=== PATIENT | male | born 1990 ===

== ENCOUNTER 2016-08-16 01:47 | Emergency (ER) | payer OTHER ==
[2016-08-16] MEDS ORDERED: Sodium Chloride 0.9% 1,000 ML ONE (02:21)
[2016-08-16] MEDS: Sodium Chloride 0.9% 1,000 ML IV ONE (02:27)
[2016-08-16 02:28] LABS: BASO % 0.1 % (0.0-2.0); EOS # 0.1 K/uL (0.0-0.7); EOS % 0.6 % (0.0-4.0); HEMATOCRIT 42.5 % (35.0-51.0); LYMPH # 0.4 K/uL (1.0-4.3); MEAN CELL VOLUME 92.9 fL (80.0-94.0); MEAN CORPUSCULAR HEMOGLOBIN 31.7 pg (27.0-31.0); MEAN CORPUSCULAR HGB CONC 34.1 g/dL (33.0-37.0); MONO # 0.7 K/uL (0.0-0.8); MONO % 3.7 % (0.0-10.0); PLATELET COUNT 213 K/uL (130-400); RED CELL DISTRIBUTION WIDTH 12.7 % (11.5-14.5); WHITE BLOOD COUNT 19.5 K/uL (4.8-10.8)
--- NOTE | 2016-08-16 02:31 | C.PDOC ---
History Of Present Illness 25 yo male w/o significant PMHx come in for evaluation of epigastric pain gradually developed for past day associated with few episodes of vomiting. Pain is localized, non-radiating, intermittent, " pressure and tightness-like", not changing with food intake. Pt admits, was drinking alcohol lot for past few days. Otherwise, pt denies fever, chills, recent abx use, and sore throat, CP, SOB, dyspnea, diaphoresis, hematemesis, melena, hematoschezia, back pain, UTI sx. Denies previous hx of GI ds, endoscopy. Ambulate to ED for evaluation, not in any apparent distress. Time Seen by Provider: 08/16/16 02:07 Chief Complaint (Nursing): Abdominal Pain History Per: Patient Past Medical History Reviewed: Historical Data, Nursing Documentation, Vital Signs Vital Signs: Last Vital Signs Temp 98.2 F 08/16/16 01:58 Pulse 96 H 08/16/16 01:58 Resp 18 08/16/16 01:58 BP 111/67 08/16/16 01:58 Pulse Ox 98 08/16/16 04:45 - Medical History PMH: No Chronic Diseases Surgical History: No Surg Hx Family History: States: No Known Family Hx - Social History Hx Alcohol Use: Yes Hx Substance Use: No - Immunization History Hx Tetanus Toxoid Vaccination: No Hx Influenza Vaccination: No Hx Pneumococcal Vaccination: No Review Of Systems Except As Marked, All Systems Reviewed And Found Negative. Constitutional: Negative for: Fever, Chills ENT: Negative for: Throat Pain Cardiovascular: Negative for: Chest Pain, Palpitations Respiratory: Negative for: Cough, Shortness of Breath, Wheezing Gastrointestinal: Positive for: Nausea, Vomiting, Abdominal Pain. Negative for : Diarrhea, Melena, Hematochezia, Hematemesis Genitourinary: Negative for: Dysuria, Frequency Musculoskeletal: Negative for: Back Pain Skin: Negative for: Rash Neurological: Negative for: Weakness, Numbness, Altered Mental Status, Headache , Dizziness Physical Exam - Physical Exam Appears: Well, Non-toxic, No Acute Distress Skin: Normal Color, Warm, Dry, No Rash Eye(s): bilateral: PERRL Oral Mucosa: Moist Throat: Normal, No Erythema, No Exudate, No Drooling Neck: Supple Cardiovascular: Rhythm Regular Respiratory: No Stridor, No Wheezing Gastrointestinal/Abdominal: Tenderness (mild epigstric), No Distention, No Guarding, No Rebound Back: No CVA Tenderness Extremity: No Pedal Edema Neurological/Psych: Oriented x3, Normal Speech ED Course And Treatment - Laboratory Results Result Diagrams: 08/16/16 02:26 08/16/16 02:26 O2 Sat by Pulse Oximetry: 98 Pulse Ox Interpretation: Normal - CT Scan/US CT abd/pelvis Other Rad Studies (CT/US): Radiology Report Reviewed CT/US Interpretation: EXAM: CT Abdomen and Pelvis With Intravenous Contrast. CLINICAL HISTORY: 25 years old, male; Pain; Abdominal pain. TECHNIQUE: Axial computed tomography images of the abdomen and pelvis with intravenous contrast. This CT. exam was performed using one or more of the following dose reduction techniques: automated. exposure control, adjustment of the mA and/or kV according to patient size, and/or use of iterative. reconstruction technique. Coronal and sagittal reformatted images were created and reviewed. COMPARISON: No relevant prior studies available. FINDINGS: Lower thorax: No acute findings. ABDOMEN: Liver: Tiny calcifications in the dome of the liver which are nonspecific but possibly reflect the. sequela of prior granulomatous disease (series 2, images 16-18). Liver is otherwise unremarkable. Gallbladder and bile ducts: Unremarkable. No calcified stones. No ductal dilation. Pancreas : Unremarkable. No mass. No ductal dilation. Spleen: Unremarkable. No splenomegaly. Adrenals: Unremarkable. No mass. Kidneys and ureters: Unremarkable. No solid mass. No hydronephrosis. Stomach and bowel: Unremarkable. No obstruction. No mucosal thickening. Appendix: Normal appendix. Bladder: Unremarkable. No mass. Reproductive: Unremarkable as visualized. ABDOMEN and PELVIS: Intraperitoneal space: Unremarkable. No free air. No significant fluid collection. Bones/joints: No acute fracture. No dislocation. Soft tissues: Unremarkable. Vasculature: Unremarkable. No abdominal aortic aneurysm. Lymph nodes: Unremarkable. No enlarged lymph nodes. IMPRESSION: No acute findings. Normal appendix. Tiny calcifications in the liver which are nonspecific but possibly reflect the sequela of prior. granulomatous disease. Thank you for allowing us to participate in the care of your patient. Dictated and Authenticated by: Yesica Rivera MD. 2016 5:48 AM Eastern Time ([place] Progress Note: Pt was OBS in ED for 2 hours and reports moderate improvement in epigasric pain. Afebrile, hemodynamicaly stable. NOn-toxic. Tolerate Po well in ED. PUlseOx 99% RA. ENT: no acute findings. Lungs: CTA B/L, BS equal B/L. Abd: benign, (-) guarding, (-) rebuond, (-) RLQ tenderness. back: (-) CVA tenderness. Diagnostics review and appears without acute abnoramlities. Pt has clinical findings c/w epigastric pain. Pt advised and ref. to [facility] PMD , GI in 2-3 days for re-eval. Pt advised on diet restriction for few days. return to ED at any time if any worsening or new changes. Disposition Counseled Patient/Family Regarding: Studies Performed, Diagnosis, Need For Followup, Rx Given - Disposition Referrals: [facility] [Outside] Jony Bailey MD [Staff Provider] - Rod Bailey MD [IM] - Disposition: HOME/ ROUTINE Disposition Time: 05:55 Condition: STABLE Additional Instructions: DIET RESTRICTION FOR 2-3 DAYS ENCOURAGE FLUIDS TAKE MEDICATION PRESCRIBED FOLLOW UP WITH PMD, GI IN 2-3 DAYS FOR RE-EVALUATION. RETURN TO ED IF ANY WORSENING OR NEW CHANGES. Prescriptions: Pantoprazole Sodium [Protonix] 20 mg PO DAILY #14 tablet.dr Instructions: Epigastric Pain (ED) - Clinical Impression Clinical Impression: Epigastric pain
[2016-08-16 02:38] LABS: CHLORIDE 100 mmol/L (98-107); POTASSIUM 4.1 mmol/L (3.6-5.2); SODIUM 140 mmol/L (132-148)
[2016-08-16 02:40] LABS: ALB/GLOB RATIO 1.3 (1.0-2.1); AST/SGOT 25 U/L (17-59); BILIRUBIN,TOTAL 1.6 mg/dL (0.2-1.3); CARBON DIOXIDE 27 mmol/L (22-30); GFR AFRICAN-AMERICAN > 60; TOTAL PROTEIN 8.4 g/dL (6.3-8.3)
[2016-08-16 02:41] LABS: ALKALINE PHOSPHATASE 86 U/L (38-126); ALT/SGPT 23 U/L (21-72); BLOOD UREA NITROGEN 16 mg/dL (9-20); CALCIUM 9.6 mg/dl (8.6-10.4); GLUCOSE,RANDOM 123 mg/dL (75-110)
[2016-08-16 02:48] LABS: RBC URINE 1 /hpf (0-3); URINE BILIRUBIN NEGATIVE (NEGATIVE); URINE BLOOD NEGATIVE (NEGATIVE); URINE COLOR Yellow (YELLOW); URINE GLUCOSE (UA) NORMAL (Normal); URINE KETONE TRACE mg/dL (NEGATIVE); URINE LEUKOCYTE ESTERASE NEG Leu/uL (Negative); URINE PROTEIN NEGATIVE (NEGATIVE); URINE UROBILINOGEN NORMAL mg/dL (0.2-1.0); WBC URINE 1 /hpf (0-5)
[2016-08-16 03:23] LABS: EOSINOPHIL 1 % (0-4); NEUTROPHIL 87 % (50-75); TOTAL CELLS COUNTED 100
[2016-08-16] MEDS ORDERED: Iohexol 350mg/ml 100 ML ONE (04:48)
[2016-08-16 06:19] VITALS: BP 110/70; PULSE 70; RESP 14; TEMP 97.5; O2SAT 99
--- NOTE | 2016-08-16 10:41 | CT ---
PROCEDURE: CT Abdomen and Pelvis with contrast HISTORY: pain COMPARISON: None available. TECHNIQUE: Contrast dose: 100 mL Omnipaque 350 Radiation dose: Total exam DLP = 450.64 mGy-cm. This CT exam was performed using one or more of the following dose reduction techniques: Automated exposure control, adjustment of the mA and/or kV according to patient size, and/or use of iterative reconstruction technique. FINDINGS: LOWER THORAX: No visible consolidation, pleural effusion, or pneumothorax. LIVER: Several hepatic dome calcifications, likely granulomas. GALLBLADDER AND BILE DUCTS: Unremarkable. PANCREAS: Unremarkable. SPLEEN: Unremarkable. ADRENALS: Unremarkable. KIDNEYS AND URETERS: The kidneys enhance symmetrically. No hydronephrosis or obstructing calculus identified. VASCULATURE: No aortic aneurysm. BOWEL: Stomach is nondistended. Lack of oral contrast limits evaluation for bowel pathology. Bowel loops appear within normal limits of caliber without evidence of obstruction. APPENDIX: The appendix appears within normal limits of caliber. No secondary signs of acute appendicitis. PERITONEUM: No significant free fluid. No definite free air. LYMPH NODES: No bulky adenopathy identified. BLADDER: Under distended urinary bladder appears otherwise grossly unremarkable. REPRODUCTIVE: The prostate gland measures approximately 3.2 x 4.6 cm. BONES: No acute osseous abnormality is detected. OTHER FINDINGS: Partially imaged bilateral gynecomastia. 7 mm fat containing umbilical hernia. IMPRESSION: No acute pathology identified. Calcifications at the hepatic dome, likely granulomas. Partially imaged bilateral gynecomastia. 7 mm fat containing umbilical hernia. Preliminary impression was provided by virtual radiologic.
== END 2016-08-16 06:18 | disposition home or self-care (01) ==
LOC: C.ER 01:47
DX: R10.13 Epigastric pain (principal)
CPT/HCPCS: 74177; 80053; 81001; 83690; 85025; 96361; 96374; 96375; 99284; J2405; J7040; Q9967